=== PATIENT | female | born 1995 | race Caucasian/White ===

== ENCOUNTER 2017-03-06 12:30 | Emergency (ER) | payer BC, MEDICAID ==
[2017-03-06 13:27] VITALS: BP 142/76
[2017-03-06 13:27] LABS: CHLORIDE,CL 105 mEq/L (98-106); SODIUM,NA 138 mEq/L (136-145)
[2017-03-06] MEDS ORDERED: Lactated Ringers 1,000 ML IV ONE (13:28)
[2017-03-06] MEDS ORDERED: cefTRIAXone 1 GM Vial IVPUSH SCH (13:30)
--- NOTE | 2017-03-06 15:05 | EDM.PDOC ---
ED HPI GENERAL MEDICAL PROBLEM - General Chief Complaint: General Stated Complaint: LETHARGIC/PASSED OUT Time Seen by Provider: 03/06/17 13:15 Source of Information: Reports: Patient History Limitations: Reports: No Limitations - History of Present Illness INITIAL COMMENTS - FREE TEXT/NARRATIVE: Lidia is a 21 yo female who presents to the ER, accompanied by her mother, with concerns fainting. States she was outside visiting with her friend when she started to get some blurry vision. States the next thing she knew she was lying on the ground with her friend over her talking to her. She admits her friend felt she was out for about 5 seconds. States she did bump the left and front side of her head. Denies any current symptoms. States she has been more fatigued the last few days. Admits she is 23 weeks . Denies any complications or concerns with the baby. Has been eating well and drinking a lot of water. Admits to no illicit drug use. No alcohol use. States she does smoke 3-4 cigarettes a day. 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 Onset: Today Duration: Resolved Prior to Arrival Epigastric Pain Score (Numeric/FACES): 3 - Related Data Allergies Allergy/AdvReac Type Severity Reaction Status Date / Time Penicillins Allergy Hives Verified 03/06/17 12:42 Home Meds: Home Meds [id number]/FA/Omega3/Dha/Fish Oil [ Gummies] 1 each PO DAILY 03/06/17 [ History] Past Medical History - Past Health History Medical/Surgical History: Denies Medical/Surgical History HEENT History: Reports: Impaired Vision Neurological History: Reports: Seizure - Past Surgical History HEENT Surgical History: Reports: Adenoidectomy, Tonsillectomy Social & Family History - Tobacco Use Smoking Status *Q: Current Every Day Smoker Years of Tobacco use: 4 Packs/Tins Daily: 0.2 - Caffeine Use Caffeine Use: Reports: None - Recreational Drug Use Recreational Drug Use: No ED ROS GENERAL - Review of Systems Review Of Systems: See Below Constitutional: Reports: Fatigue. Denies: Fever, Chills, Decreased Appetite HEENT: Reports: No Symptoms Respiratory: Reports: No Symptoms Cardiovascular: Reports: Syncope. Denies: Chest Pain, Lightheadedness Endocrine: Reports: Fatigue GI/Abdominal: Reports: No Symptoms. Denies: Abdominal Pain, Bloody Stool, Constipation, Diarrhea, Nausea, Vomiting : Reports: Frequency. Denies: Discharge, Dysuria, Urgency Musculoskeletal: Reports: No Symptoms Skin: Reports: No Symptoms Neurological: Denies: Dizziness, Headache, Pre-Existing Deficit ED EXAM, GENERAL - Physical Exam Exam: See Below Exam Limited By: No Limitations General Appearance: Alert, WD/WN, No Apparent Distress Eye Exam: Bilateral Eye: EOMI, PERRL Ears: Normal External Exam, Normal Canal, Hearing Grossly Normal, Normal TMs Nose: Normal Inspection, Normal Mucosa, No Blood Throat/Mouth: Normal Inspection, Normal Lips, Normal Teeth, Normal Gums, Normal Oropharynx, Normal Voice, No Airway Compromise Head: Atraumatic, Normocephalic Neck: Normal Inspection, Supple, Non-Tender, Full Range of Motion Respiratory/Chest: No Respiratory Distress, Lungs Clear, Normal Breath Sounds, No Accessory Muscle Use Cardiovascular: Normal Peripheral Pulses, Regular Rate, Rhythm, No Edema, No Murmur GI/Abdominal: Normal Bowel Sounds, Soft, Non-Tender, No Organomegaly, No Distention, No Abnormal Bruit Extremities: Normal Inspection, Normal Capillary Refill Neurological: Alert, Oriented, CN II-XII Intact, Normal Cognition, Normal Gait, No Motor/Sensory Deficits Psychiatric: Normal Affect, Normal Mood Skin Exam: Warm, Dry, Intact, Normal Color, No Rash Course - Vital Signs Last Recorded V/S: Last Vital Signs Temp 99.5 F 03/06/17 12:38 Pulse 86 03/06/17 12:38 Resp 16 03/06/17 12:38 BP 142/76 H 03/06/17 13:27 Pulse Ox 99 03/06/17 12:38 - Orders/Labs/Meds Orders: Active Orders 24 hr Category Date Time Status CULTURE URINE [RM] Stat Lab 03/06/17 12:30 Received cefTRIAXone [Rocephin] Med 03/06/17 13:30 Active 1 gm IVPUSH Q24H Medication Orders Ceftriaxone Sodium (Rocephin) 1 gm IVPUSH Q24H [facility] Last Admin: 03/06/17 13:47 Dose: 1 gm Labs: Laboratory Tests 03/06/17 03/06/17 03/06/17 Range/Units 12:52 13:15 13:15 WBC 10.6 H (5.0-10.0) 10^3/uL RBC 4.08 (4.00-5.50) 10^6/uL Hgb 12.6 (12.0-16.0) g/dL Hct 36.7 L (37.0-47.0) % MCV 90.0 (82.0-94.0) fL MCH 30.9 (27.0-32.0) pg MCHC 34.3 (33.0-38.0) g/dL RDW Coeff of Garrick 13.8 (11.0-15.0) % Plt Count 182 (150-400) 10^3/uL Neut % (Auto) 81.2 (35-85) % Lymph % (Auto) 11.2 (10-55) % [place] % (Auto) 6.9 (0-16) % Eos % (Auto) 0.6 (0-5) % Baso % (Auto) 0.1 (0-3) % Neut # (Auto) 8.60 H (1.80-7.00) 10^3/uL Lymph # (Auto) 1.18 (1.00-4.80) 10^3/uL [place] # (Auto) 0.73 (0.00-0.80) 10^3/uL Eos # (Auto) 0.06 (0.00-0.45) 10^3/uL Baso # (Auto) 0.01 10^3/uL Sodium 138 (136-145) mEq/L Potassium 4.1 (3.5-5.0) mEq/L Chloride 105 (98-106) mEq/L Carbon Dioxide 23 (21-32) mmol/L BUN 8 (7-18) mg/dL Creatinine 0.5 L (0.6-1.0) mg/dL Est Cr Clr Drug Dosing 158.81 mL/min Estimated GFR (MDRD) > 60 (>=60) mL/min Glucose 75 (75-99) mg/dL Calcium 9.3 (8.4-10.1) mg/dL Urine Color Yellow (YELLOW) Urine Appearance Slightly cloudy (CLEAR) Urine pH 7.0 (4.5-8.0) Ur Specific [place] 1.021 H (1.003-1.020) Urine Protein Negative (NEGATIVE) mg/dL Urine Glucose (UA) Negative (NEGATIVE) mg/dL Urine Ketones Negative (NEGATIVE) mg/dL Urine Occult Blood Negative (NEGATIVE) Urine Nitrite Negative (NEGATIVE) Urine Bilirubin Negative (NEGATIVE) Urine Urobilinogen 0.2 (0.2-1.0) EU/dL Ur Leukocyte Esterase Moderate H (NEGATIVE) Urine RBC Not seen (0-5) /HPF Urine WBC 10-20 H (0-5) /HPF Ur Squamous Epith Cells Few H (NOT SEEN) /HPF Amorphous Sediment Few H (NOT SEEN) /HPF Urine Bacteria Moderate H (NOT SEEN) /HPF Urinalysis Comment Meds: Medications Generic Name Dose Route Start Last Admin Trade Name Freq PRN Reason Stop Dose Admin Ceftriaxone Sodium 1 gm 03/06/17 13:30 03/06/17 13:47 Rocephin IVPUSH 1 gm Q24H SHARON Administration Discontinued Medications Generic Name Dose Route Start Last Admin Trade Name Freq PRN Reason Stop Dose Admin Lactated Ringer's 1,000 mls @ 999 mls/hr 03/06/17 13:28 03/06/17 13:45 Ringers, Lactated IV 03/06/17 14:28 999 mls/hr .BOLUS ONE Administration - Re-Assessments/Exams Free Text/Narrative Re-Assessment/Exam: 03/06/17 15:41 Lidia has been doing well while getting IV fluids. Denies any symptoms. States she is feeling a lot better. Will discharge home after finishing Liter of LR. Departure - Departure Time of Disposition: 16:00 Disposition: Home, Self-Care 01 Clinical Impression: UTI, Urinary tract infectious disease - Discharge Information Referrals: Saturnino Bal MD [Primary Care Provider] - Forms: ED Department Discharge Additional Instructions: 1) Ceftin 500mg twice a day for 7 days 2) Push fluids 3) Will culture urine with antibiotic sensitivity report to follow. Wall call with findings. 4) Follow up with Dr. Bal next week for follow up, return to ER if any concerns prior. - Problem List & Annotations (1) UTI, Urinary tract infectious disease SNOMED Code(s): 13010951 Code(s): N39.0 - URINARY TRACT INFECTION, SITE NOT SPECIFIED Status: Acute Current Visit: Yes - Problem List Review Problem List Initiated/Reviewed/Updated: Yes - My Orders Last 24 Hours: My Active Orders 03/06/17 12:30 CULTURE URINE [RM] Stat 03/06/17 13:30 cefTRIAXone [Rocephin] 1 gm IVPUSH Q24H - Assessment/Plan Last 24 Hours: My Active Orders 03/06/17 12:30 CULTURE URINE [RM] Stat 03/06/17 13:30 cefTRIAXone [Rocephin] 1 gm IVPUSH Q24H Plan: Urinalysis confirmed UTI which may be causing her syncopal episode. Will start Ceftin with culture pending. [employer] was sent to same day care for IV fluids and 1 gram of Rocephin. Will presumptively plan discharge after 1 liter of fluids.
== END 2017-03-06 16:28 | disposition home or self-care (01) ==
LOC: CC.ED 12:30
DX: O23.42 Unspecified infection of urinary tract in pregnancy, second trimester (principal); O99.332 Smoking (tobacco) complicating pregnancy, second trimester; F17.210 Nicotine dependence, cigarettes, uncomplicated; Z88.0 Allergy status to penicillin; Z79.899 Other long term (current) drug therapy; Z3A.23 23 weeks gestation of pregnancy; Z90.49 Acquired absence of other specified parts of digestive tract; Z90.89 Acquired absence of other organs; Z98.890 Other specified postprocedural states
CPT/HCPCS: 36415; 80048; 81001; 85025; 87086; 96361; 96374; 99284; J0696; J7120

== ENCOUNTER 2019-05-07 16:19 | Emergency (ER) | payer OTHER, MEDICAID ==
[2019-05-07 16:24] VITALS: BP 110/67; PULSE 76
--- NOTE | 2019-05-07 18:15 | EDM.PDOCBH ---
ED HPI GENERAL MEDICAL PROBLEM - General Chief Complaint: Behavioral/Psych Stated Complaint: "I feel like killing myself" Time Seen by Provider: 05/07/19 16:35 Source of Information: Reports: Patient History Limitations: Reports: No Limitations - History of Present Illness INITIAL COMMENTS - FREE TEXT/NARRATIVE: Lidia is a 23 yo female who presents to the ED stating she doesn't feel well. States today she found herself crying on the floor after looking at a picture of her past boyfriend and friends. She states it was the happiest she had ever felt and doesn't have those feelings anymore. She states she feels she is at her lowest now. She has been dealing with some financial problems and has two children that she feels she hasn't been the best parent. Admits their father's haven't helped her at all. Feels she doesn't have anyone to talk to or to turn to when she is feeling down. States today she felt like it would be best if she wasn't here anymore. States she doesn't want to feel the way she feels anymore. Admits she was started on escitalopram in January and she thought maybe it was helping but isn't sure anymore. She denies any action or plan in regards to her suicidal thoughts. States she doesn't feel she would ever act on it but just doesn't want to feel this way. States it scared her having the thoughts. Onset: Today - Related Data Allergies Allergy/AdvReac Type Severity Reaction Status Date / Time Penicillins Allergy Hives Verified 03/06/17 12:42 Home Meds: Home Meds [id number]/FA/Omega3/Dha/Fish Oil [ Gummies] 1 each PO DAILY 03/06/17 [ History] Past Medical History - Past Health History Medical/Surgical History: Denies Medical/Surgical History HEENT History: Reports: Impaired Vision Neurological History: Reports: Seizure - Past Surgical History HEENT Surgical History: Reports: Adenoidectomy, Tonsillectomy Social & Family History - Tobacco Use Smoking Status *Q: Former Smoker Years of Tobacco use: 6 Used Tobacco, but Quit: No - Caffeine Use Caffeine Use: Reports: None - Recreational Drug Use Recreational Drug Use: No ED ROS GENERAL - Review of Systems Review Of Systems: See Below Constitutional: Reports: No Symptoms HEENT: Reports: No Symptoms Respiratory: Reports: No Symptoms Cardiovascular: Reports: No Symptoms Endocrine: Reports: No Symptoms GI/Abdominal: Reports: No Symptoms : Reports: No Symptoms Musculoskeletal: Reports: No Symptoms Skin: Reports: No Symptoms Psychiatric: Reports: Depression, Suicidal Ideation. Denies: Agitation, Confusion, Hallucinations, Homicidal Ideation ED EXAM, BEHAVIORAL HEALTH - Physical Exam Exam: See Below Exam Limited By: No Limitations General Appearance: Alert, Anxious Neurological: Alert, Normal Cognition, No Motor/Sensory Deficits, Oriented x 3 Psychiatric: Depressed Mood, Tearful. No: Agitated, Disoriented, Non- Communicative, Uncooperative, Homicidal Thoughts, Suicidal Plan, Suicidal Thoughts, Threatening Behavior COURSE, BEHAVIORAL HEALTH COMP - Course Vital Signs: Last Vital Signs Temp 97.7 F 05/07/19 16:21 Pulse 76 05/07/19 16:21 Resp 20 05/07/19 16:21 BP 110/67 05/07/19 16:21 Pulse Ox 98 05/07/19 16:21 Departure - Departure Time of Disposition: 18:17 Disposition: Home, Self-Care 01 Clinical Impression: Anxiety and depression - Discharge Information Instructions: Major Depressive Disorder, Adult, [id number], Living With Anxiety Additional Instructions: 1) Stop the escitalopram. Advise not starting at this time 2) Recommend recheck next week with Karrie to discuss recent stopping of the medication 3) Encourage to continue doing the things we discussed. 4) Recommend 30 minutes a day of things to do for yourself, running, etc... 5) If any further thought would arise of hurting yourself, please call or return immediately. [phone] 6) Recommend routine visits to discuss how you are doing/feeling. - Problem List & Annotations (1) Anxiety and depression SNOMED Code(s): 689271167 Code(s): F41.9 - ANXIETY DISORDER, UNSPECIFIED; F32.9 - MAJOR DEPRESSIVE DISORDER, SINGLE EPISODE, UNSPECIFIED Status: Acute - Assessment/Plan Plan: Lidia has been doing well in the ED. We spent over 45 minutes in face to face consultation discussing her current situation and what had lead to those feelings. She was able to talk about why she had felt that way. She admits she doesn't have any further thoughts and never did have a plan. She is advised to stop the escitalopram as we discussed the black box warning and common side effects. Encourage refraining from any prescriptions at this time or alcohol. We will discharge at this time with patient admitting she is feeling a lot better. Has no further thoughts and most importantly no plan. We discussed we are always here and if she needs anything it is okay to ask.
== END 2019-05-07 18:30 | disposition home or self-care (01) ==
LOC: CC.ED 16:19
DX: F41.9 Anxiety disorder, unspecified (principal); F32.9 Major depressive disorder, single episode, unspecified; Z98.890 Other specified postprocedural states; Z87.891 Personal history of nicotine dependence; Z88.0 Allergy status to penicillin
CPT/HCPCS: 99284

== ENCOUNTER 2020-04-27 22:12 | Emergency (ER) | payer BC ==
[~2020-04-27 22:12] MED LIST: Ondansetron 4 MG/2 ML SDV ONE
[2020-04-27] MEDS ORDERED: Ondansetron 4 MG Tab.DIS PO ONE (22:13)
[2020-04-27] MEDS ORDERED: Ondansetron 4 MG/2 ML SDV IVPUSH STA (22:23)
[2020-04-27] MEDS ORDERED: Morphine 4 MG/ML VIAL IVPUSH STA (22:23)
[2020-04-27] MEDS ORDERED: Sodium Chloride 0.9% 1,000 ML IV SCH (22:30)
[2020-04-27 22:55] LABS: CHLORIDE,CL 103 mEq/L (98-106); SODIUM,NA 139 mEq/L (136-145)
--- NOTE | 2020-04-27 22:57 | EDM.PDOC ---
ED HPI GENERAL MEDICAL PROBLEM - General Chief Complaint: Abdominal Pain Stated Complaint: abd pain Time Seen by Provider: 04/27/20 22:40 Source of Information: Reports: Patient History Limitations: Reports: No Limitations - History of Present Illness INITIAL COMMENTS - FREE TEXT/NARRATIVE: Lidia is a 24 yo female who presents to the ED via private vehicle with concerns of upper abdominal pain. States it started Sunday evening with a generalized ill feeling. She admits she thought she was getting the stomach flu. States she ended up throwing up Sunday night. States yesterday she continued to not feel well and had a decreased appetite. Admits anytime she tried eating or drinking anything she would throw up. States she did have a bowel movement this morning. States the last few weeks she has had some difficulty with bowel movements d/t constipation. States today the pain worsened and she spent the day laying in her bed. States she still has her gallbladder and appendix. 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 Last alcoholic drink was Sunday night. Admits to last meal Sunday. Only thing she has been drinking is water but again having difficulty keeping it down. Duration: Getting Worse Location: Reports: Abdomen. Denies: Radiates to Quality: Reports: Sharp, Stabbing Upper Abdomen Pain Score (Numeric/FACES): 8 - Related Data Allergies Allergy/AdvReac Type Severity Reaction Status Date / Time Penicillins Allergy Hives Verified 03/06/17 12:42 Home Meds: Home Meds Escitalopram [Lexapro] 10 mg PO DAILY 05/07/19 [History] Estradiol Cypionate [Depo-Estradiol] 1 injection IM Q90D 04/27/20 [History] Past Medical History - Past Health History Medical/Surgical History: Denies Medical/Surgical History HEENT History: Reports: Impaired Vision [employer] History: Reports: Neurological History: Reports: Seizure - Past Surgical History HEENT Surgical History: Reports: Adenoidectomy, Tonsillectomy Social & Family History - Tobacco Use Smoking Status *Q: Current Every Day Smoker Years of Tobacco use: 7 Packs/Tins Daily: 0.2 - Caffeine Use Caffeine Use: Reports: Soda - Alcohol Use Days Per Week of Alcohol Use: 4 Number of Drinks Per Day: 2 Total Drinks Per Week: 8 - Recreational Drug Use Recreational Drug Use: No ED ROS GENERAL - Review of Systems Review Of Systems: See Below Constitutional: Reports: Fever, Chills, Malaise, Decreased Appetite HEENT: Reports: No Symptoms Respiratory: Denies: Shortness of Breath, Wheezing, Cough Cardiovascular: Denies: Chest Pain, Palpitations GI/Abdominal: Reports: Abdominal Pain, Constipation (last few weeks. ), Diarrhea (started yesterday - 1 episode and this morning), Decreased Appetite, Nausea, Vomiting. Denies: Bloody Stool, Distension, Flatus, Hematochezia, Melena : Reports: Irregular Menses (last period end of February to early March then switched to Depo Provera shot). Denies: Discharge, Flank Pain, Hematuria Musculoskeletal: Reports: No Symptoms Skin: Reports: No Symptoms Neurological: Reports: No Symptoms Psychiatric: Reports: No Symptoms ED EXAM, GI/ABD - Physical Exam Exam: See Below Exam Limited By: No Limitations General Appearance: Alert, No Apparent Distress Eyes: Bilateral: Normal Appearance Ears: Normal External Exam, Hearing Grossly Normal Nose: Normal Inspection, Normal Mucosa, No Blood Throat/Mouth: Normal Inspection, Normal Lips, Normal Teeth, Normal Gums, Normal Oropharynx, Normal Voice, No Airway Compromise Head: Atraumatic, Normocephalic Neck: Normal Inspection, Supple Respiratory/Chest: No Respiratory Distress, Lungs Clear, Normal Breath Sounds, No Accessory Muscle Use Cardiovascular: Normal Peripheral Pulses, Regular Rate, Rhythm, No Edema, No Murmur GI/Abdominal Exam: Normal Bowel Sounds, Soft, No Mass, Guarding, Tender (RUQ, epigastric and LUQ ). No: Hepatomegaly, Splenomegaly Back Exam: No: CVA Tenderness (L), CVA Tenderness (R) Extremities: Normal Inspection, No Pedal Edema, Normal Capillary Refill Neurological: Alert, Oriented, Normal Cognition, No Motor/Sensory Deficits Psychiatric: Normal Affect, Normal Mood Course - Vital Signs Last Recorded V/S: Last Vital Signs Temp 97 F 04/27/20 22:59 Pulse 76 04/27/20 22:59 Resp 16 04/27/20 22:59 BP 143/69 H 04/27/20 22:59 Pulse Ox 99 04/27/20 22:59 - Orders/Labs/Meds Orders: Active Orders 24 hr Category Date Time Status Abdomen Ltd [US] Stat Exams 04/27/20 23:03 Ordered OB Ltd 1 or More Fetus [US] Stat Exams 04/27/20 23:11 Ordered Sodium Chloride 0.9% [Normal Saline] 1,000 ml Med 04/27/20 22:30 Active IV ASDIRECTED Medication Orders Sodium Chloride (Normal Saline) 1,000 mls @ 999 mls/hr IV ASDIRECTED SHARON Last Admin: 04/27/20 22:25 Dose: 999 mls/hr Documented by: TORIE Labs: Laboratory Tests 04/27/20 04/27/20 04/27/20 Range/Units 22:23 22:23 22:36 WBC 15.7 H (5.0-10.0) 10^3/uL RBC 5.04 (4.00-5.50) 10^6/uL Hgb 15.9 (12.0-16.0) g/dL Hct 45.1 (37.0-47.0) % MCV 89.5 (82.0-94.0) fL MCH 31.5 (27.0-32.0) pg MCHC 35.3 (33.0-38.0) g/dL RDW Coeff of [place]rick 12.9 (11.0-15.0) % Plt Count 239 (150-400) 10^3/uL Neut % (Auto) 81.5 (35-85) % Lymph % (Auto) 12.0 (10-55) % [place] % (Auto) 6.1 (0-16) % Eos % (Auto) 0.3 (0-5) % Baso % (Auto) 0.1 (0-3) % Neut # (Auto) 12.78 H (1.80-7.00) 10^3/uL Lymph # (Auto) 1.88 (1.00-4.80) 10^3/uL [place] # (Auto) 0.95 H (0.00-0.80) 10^3/uL Eos # (Auto) 0.04 (0.00-0.45) 10^3/uL Baso # (Auto) 0.02 10^3/uL Sodium (136-145) mEq/L Potassium (3.5-5.0) mEq/L Chloride (98-106) mEq/L Carbon Dioxide (21-32) mmol/L BUN (7-18) mg/dL Creatinine (0.6-1.0) mg/dL Est Cr Clr Drug Dosing mL/min Estimated GFR (MDRD) (>=60) mL/min Glucose (75-99) mg/dL Lactic Acid (0.4-2.0) mmol/L Calcium (8.4-10.1) mg/dL Total Bilirubin (0.0-1.0) mg/dL AST (15-37) U/L ALT (12-78) U/L Alkaline Phosphatase (46-116) U/L C-Reactive Protein (0.2-0.8) mg/dL Total Protein (6.4-8.2) g/dL Albumin (3.4-5.0) g/dL Amylase (25-115) U/L Lipase (73-393) U/L Urine Color Yellow (YELLOW) Urine Appearance Clear (CLEAR) Urine pH 6.0 (4.5-8.0) Ur Specific [place] >= 1.030 H (1.003-1.020) Urine Protein 30 H (NEGATIVE) mg/dL Urine Glucose (UA) Negative (NEGATIVE) mg/dL Urine Ketones >=160 H (NEGATIVE) mg/dL Urine Occult Blood Trace-intact H (NEGATIVE) Urine Nitrite Negative (NEGATIVE) Urine Bilirubin Small H (NEGATIVE) Urine Urobilinogen 1.0 (0.2-1.0) EU/dL Ur Leukocyte Esterase Small H (NEGATIVE) Urine RBC 0-5 (0-5) /HPF Urine WBC 5-10 H (0-5) /HPF Ur Squamous Epith Cells Many H (NOT SEEN) /HPF Urine Bacteria Few H (NOT SEEN) /HPF Urine HCG, Qual Positive 04/27/20 04/27/20 Range/Units 22:36 22:36 WBC (5.0-10.0) 10^3/uL RBC (4.00-5.50) 10^6/uL Hgb (12.0-16.0) g/dL Hct (37.0-47.0) % MCV (82.0-94.0) fL MCH (27.0-32.0) pg MCHC (33.0-38.0) g/dL RDW Coeff of [place] (11.0-15.0) % Plt Count (150-400) 10^3/uL Neut % (Auto) (35-85) % Lymph % (Auto) (10-55) % [place] % (Auto) (0-16) % Eos % (Auto) (0-5) % Baso % (Auto) (0-3) % Neut # (Auto) (1.80-7.00) 10^3/uL Lymph # (Auto) (1.00-4.80) 10^3/uL [place] # (Auto) (0.00-0.80) 10^3/uL Eos # (Auto) (0.00-0.45) 10^3/uL Baso # (Auto) 10^3/uL Sodium 139 (136-145) mEq/L Potassium 3.8 (3.5-5.0) mEq/L Chloride 103 (98-106) mEq/L Carbon Dioxide 17 L (21-32) mmol/L BUN 11 (7-18) mg/dL Creatinine 0.9 D (0.6-1.0) mg/dL Est Cr Clr Drug Dosing 85.98 mL/min Estimated GFR (MDRD) > 60 (>=60) mL/min Glucose 88 (75-99) mg/dL Lactic Acid 1.4 (0.4-2.0) mmol/L Calcium 9.4 (8.4-10.1) mg/dL Total Bilirubin 0.9 (0.0-1.0) mg/dL AST 13 L (15-37) U/L ALT 32 (12-78) U/L Alkaline Phosphatase 96 (46-116) U/L C-Reactive Protein 1.5 H (0.2-0.8) mg/dL Total Protein 7.9 (6.4-8.2) g/dL Albumin 4.1 (3.4-5.0) g/dL Amylase 37 (25-115) U/L Lipase 81 (73-393) U/L Urine Color (YELLOW) Urine Appearance (CLEAR) Urine pH (4.5-8.0) Ur Specific [place] (1.003-1.020) Urine Protein (NEGATIVE) mg/dL Urine Glucose (UA) (NEGATIVE) mg/dL Urine Ketones (NEGATIVE) mg/dL Urine Occult Blood (NEGATIVE) Urine Nitrite (NEGATIVE) Urine Bilirubin (NEGATIVE) Urine Urobilinogen (0.2-1.0) EU/dL Ur Leukocyte Esterase (NEGATIVE) Urine RBC (0-5) /HPF Urine WBC (0-5) /HPF Ur Squamous Epith Cells (NOT SEEN) /HPF Urine Bacteria (NOT SEEN) /HPF Urine HCG, Qual Meds: Medications Generic Name Dose Route Start Last Admin Trade Name Jason PRN Reason Stop Dose Admin Sodium Chloride 1,000 mls @ 999 mls/hr 04/27/20 22:30 04/27/20 22:25 Normal Saline IV 999 mls/hr ASDIRECTED SHARON Administration Discontinued Medications Generic Name Dose Route Start Last Admin Trade Name Jason PRN Reason Stop Dose Admin Morphine Sulfate 4 mg 04/27/20 22:23 04/27/20 22:30 Morphine IVPUSH 04/27/20 22:24 4 mg STAT STA Administration Ondansetron HCl 4 mg 04/27/20 22:23 04/27/20 22:26 Zofran IVPUSH 04/27/20 22:24 4 mg STAT STA Administration Ondansetron HCl Confirm 04/27/20 22:10 04/27/20 22:38 Zofran Administered 04/27/20 22:11 Not Given Dose 4 mg .ROUTE .STK-MED ONE - Re-Assessments/Exams Free Text/Narrative Re-Assessment/Exam: [place] [address]. Urine was positive. Ultrasound of RUQ and OB was completed. No gallstones or inflammatory changes of gallbladder wall. Liver and pancreas unremarkable. Ultrasound did show a live intrauterine at 7 weeks gestation. HR of 140's. Departure - Departure Time of Disposition: 00:07 Disposition: Home, Self-Care 01 Clinical Impression: Intrauterine Abdominal pain Qualifiers: Abdominal location: epigastric Qualified Code(s): R10.13 - Epigastric pain - Discharge Information Instructions: Abdominal Pain During , [id number], Nausea and Vomiting, Adult, [id number]-[id number], First Trimester of , Mrex-nr-Dmme, Warning Signs During Referrals: Saturnino Bal MD [Primary Care Provider] - Forms: ED Department Discharge Additional Instructions: 1) Zofran ODT 4mg - 1 tab every 4 hours (let dissolve on tongue) for nausea 2) Encourage increasing fluid intake 3) Discussed tonight and recommend see primary provider tomorrow. I will consult with Dr. Bal, primary provider, in the morning 4) If any fevers, worsening of pain, or any concerns at all as discussed, return to ED 5) Encourage smoking cessation, limiting caffeine intake, refrain from spicy foods and chocolate. May also help with epigastric discomfort Sepsis Event Note (ED) - Evaluation Sepsis Screening Result: No Definite Risk - Focused Exam Vital Signs: Vital Signs Temp Pulse Resp BP Pulse Ox 04/27/20 22:59 97 F 76 16 143/69 H 99 04/27/20 22:12 97.5 F 107 H 20 152/89 H 98 - Problem List & Annotations (1) Abdominal pain SNOMED Code(s): 30135317 Code(s): R10.9 - UNSPECIFIED ABDOMINAL PAIN Status: Acute Current Visit: Yes Qualifiers: Abdominal location: epigastric Qualified Code(s): R10.13 - Epigastric pain (2) Intrauterine SNOMED Code(s): 25051794 Code(s): Z34.90 - ENCNTR FOR SUPRVSN OF NORMAL , UNSP, UNSP TRIMESTER Status: Acute Current Visit: Yes - My Orders Last 24 Hours: My Active Orders 04/27/20 22:30 Sodium Chloride 0.9% [Normal Saline] 1,000 ml IV ASDIRECTED 04/27/20 23:03 Abdomen Ltd [US] Stat 04/27/20 23:11 OB Ltd 1 or More Fetus [US] Stat - Assessment/Plan Last 24 Hours: My Active Orders 04/27/20 22:30 Sodium Chloride 0.9% [Normal Saline] 1,000 ml IV ASDIRECTED 04/27/20 23:03 Abdomen Ltd [US] Stat 04/27/20 23:11 OB Ltd 1 or More Fetus [US] Stat Plan: See course and additional instructions.
[2020-04-27 22:59] VITALS: BP 143/69; PULSE 76
[2020-04-28] MEDS ORDERED: Take Home: Ondansetron 4 MG Tab.DIS, 2 Tab Pack PO ONE (00:08)
== END 2020-04-28 00:20 | disposition home or self-care (01) ==
LOC: SUPCPDRO 22:12 → CC.ED 22:12
DX: O99.89 Other specified diseases and conditions complicating pregnancy, childbirth and the puerperium (principal); R10.13 Epigastric pain; R10.11 Right upper quadrant pain; R10.12 Left upper quadrant pain; R19.7 Diarrhea, unspecified; O21.9 Vomiting of pregnancy, unspecified; O99.331 Smoking (tobacco) complicating pregnancy, first trimester; F17.210 Nicotine dependence, cigarettes, uncomplicated; Z88.0 Allergy status to penicillin; Z79.899 Other long term (current) drug therapy; Z3A.01 Less than 8 weeks gestation of pregnancy
CPT/HCPCS: 36415; 76705; 76815; 80053; 81001; 81025; 82150; 83605; 83690; 85025; 86140; 96361; 96374; 96375; 99284-25; A9270-GY; J2270; J2405; J7030

== ENCOUNTER 2022-04-29 20:50 | Emergency (ER) | payer BC ==
[2022-04-29] MEDS ORDERED: Diphtheria,Pertussis(Acell),Tetanus Vaccine 0.5 ML Syringe IM ONE (21:29)
[2022-04-29] MEDS ORDERED: HYDROmorphone 0.5 MG/0.5 ML Syringe IVPUSH ONE ×2 (21:30→21:57)
[2022-04-29] MEDS ORDERED: Ondansetron 4 MG/2 ML SDV IVPUSH PRN (21:58)
[2022-04-29 22:10] LABS: CHLORIDE,CL 102 mEq/L (98-106); ESTIMATED GFR 104 mL/min (>=60); SODIUM,NA 136 mEq/L (136-145)
[2022-04-29] MEDS ORDERED: fentaNYL 50 MCG/ML SDV ONE (22:30)
[2022-04-30 01:02] VITALS: PULSE 90
[2022-04-30] MEDS ORDERED: HYDROmorphone 1 MG/ML Syringe ONE (01:29)
[2022-04-30 02:00] VITALS: BP 156/109
== END 2022-04-29 22:43 | disposition critical access hospital (66) ==
LOC: CC.ED 20:50
DX: S71.122A Laceration with foreign body, left thigh, initial encounter (principal); Z23 Encounter for immunization; Z79.899 Other long term (current) drug therapy; Z88.0 Allergy status to penicillin; W18.40XA Slipping, tripping and stumbling without falling, unspecified, initial encounter
CPT/HCPCS: 36415; 80053; 80307; 85025; 90471; 90715; 96374; 96375; 99284; 99285; J1170; J2405

== ENCOUNTER 2024-09-26 11:03 | Day surgery (SDC) | payer MEDICAID ==
[2024-09-26] MEDS: Lactated Ringers 1,000 ML IV SCH (11:55)
[2024-09-26] MEDS ORDERED: Lidocaine 2% 20 ML MDV ONE (12:10)
[2024-09-26] MEDS ORDERED: fentaNYL 50 MCG/ML SDV ONE ×2 (12:10)
[2024-09-26] MEDS ORDERED: Ondansetron 4 MG/2 ML SDV ONE (12:10)
[2024-09-26] MEDS ORDERED: Midazolam 1 MG/ML 2 ML SDV ONE (12:10)
[2024-09-26] MEDS ORDERED: Propofol 200 MG/20 ML SDV ONE ×2 (12:10)
[2024-09-26] MEDS ORDERED: Ketamine 200 MG/20 ML MDV ONE (12:10)
[2024-09-26 13:57] VITALS: BP 129/69; PULSE 58
== END 2024-09-26 13:35 | disposition home or self-care (01) ==
LOC: CC.SDS 11:03
PROVIDERS: ATTEND Family Medicine
DX: K29.50 Unspecified chronic gastritis without bleeding (principal); B96.81 Helicobacter pylori [H. pylori] as the cause of diseases classified elsewhere; K57.30 Diverticulosis of large intestine without perforation or abscess without bleeding; F41.9 Anxiety disorder, unspecified; F32.A Depression, unspecified; R63.4 Abnormal weight loss; Z68.29 Body mass index [BMI] 29.0-29.9, adult; G54.6 Phantom limb syndrome with pain; Z79.899 Other long term (current) drug therapy
CPT/HCPCS: 36415; 84703; 87081; J2250; J2405; J2704; J3010; J3490; J7120

== ENCOUNTER 2024-10-09 12:00 | Emergency (ER) | payer MEDICAID ==
[2024-10-09 12:18] VITALS: BP 177/96; PULSE 89
[2024-10-09 12:31] LABS: BASOPHILS ABSOLUTE AUTO 0.04 10^3/uL (0.00-0.50); BASOPHILS PERCENT AUTO 0.4 % (0-1); EOSINOPHILS ABSOLUTE AUTO 0.06 10^3/uL (0.00-1.50); EOSINOPHILS PERCENT AUTO 0.5 % (0-6); HEMATOCRIT 45.8 % (37.0-47.0); HEMOGLOBIN 15.2 g/dL (12.0-16.0); IMMATURE GRAN ABSOLUTE AUTO 0.02 10^3/uL (0.00-0.49); IMMATURE GRAN PERCENT AUTO 0.2 % (0.0-4.9); LYMPHOCYTES ABSOLUTE AUTO 1.65 10^3/uL (0.60-5.00); LYMPHOCYTES PERCENT AUTO 14.7 % (24-44); MEAN CORPUSCULAR HEMOGLOBIN 30.8 pg (27.0-32.0); MEAN CORPUSCULAR HGB CONC 33.2 g/dL (32.0-36.0); MEAN CORPUSCULAR VOLUME 92.9 fL (83.0-97.0); MONOCYTES ABSOLUTE AUTO 0.72 10^3/uL (0.00-1.50); MONOCYTES PERCENT AUTO 6.4 % (0-10); NEUTROPHILS ABSOLUTE AUTO 8.73 x10^3/uL (1.80-8.00); NEUTROPHILS PERCENT AUTO 77.8 % (41-71); PLATELET COUNT,PLT 268 10^3/uL (150-400); RED BLOOD CELL COUNT 4.93 x10^6/uL (4.00-5.50); WHITE BLOOD CELL COUNT,WBC 11.2 10^3/uL (4.0-11.0)
[2024-10-09 12:41] LABS: BENZODIAZEPINE,URINE NEGATIVE (NEGATIVE); MDMA (ECSTASY), URINE NEGATIVE (NEGATIVE); METHADONE,URINE NEGATIVE (NEGATIVE); METHAMPHETAMINES,URINE NEGATIVE (NEGATIVE); OPIATES,URINE NEGATIVE (NEGATIVE)
[2024-10-09 12:42] LABS: AMPHETAMINES,URINE NEGATIVE (NEGATIVE); BARBITURATES,URINE NEGATIVE (NEGATIVE); OXYCODONE,URINE NEGATIVE (NEGATIVE); PHENCYCLIDINE,URINE NEGATIVE (NEGATIVE); TCA,URINE NEGATIVE (NEGATIVE)
[2024-10-09 12:49] LABS: ALANINE AMINOTRANSFERASE,ALT 32 U/L (12-78); ALBUMIN 4.1 g/dL (3.4-5.0); ALKALINE PHOSPHATASE 86 U/L (46-116); ASPARTATE AMNIOTRANSFERASE,AST 22 U/L (15-37); BILIRUBIN TOTAL 0.6 mg/dL (0.0-1.0); BLOOD UREA NITROGEN,BUN 9 mg/dL (7-18); CALCIUM 9.4 mg/dL (8.4-10.1); CARBON DIOXIDE,CO2 29 mmol/L (21-32); CHLORIDE,CL 103 mEq/L (98-106); EST CRCL DRUG DOSING (CG) 71.03 mL/min; GLUCOSE RANDOM 98 mg/dL (75-99); MAGNESIUM 1.8 mg/dL (1.8-2.4); POTASSIUM,K 3.9 mEq/L (3.5-5.0); PROTEIN TOTAL,TP 7.4 g/dL (6.4-8.2); SODIUM,NA 141 mEq/L (136-145)
[2024-10-09 12:51] LABS: C-REACTIVE PROTEIN < 0.50 mg/dL (<=0.50); ESTIMATED GFR 78 mL/min (>=60)
[2024-10-09 12:52] LABS: ACETAMINOPHEN < 2 ug/mL (10-30)
== END 2024-10-09 13:14 | disposition home or self-care (01) ==
LOC: CC.ED 12:07
DX: R45.851 Suicidal ideations (principal); F17.210 Nicotine dependence, cigarettes, uncomplicated; Z79.899 Other long term (current) drug therapy; Z79.2 Long term (current) use of antibiotics; Z88.0 Allergy status to penicillin
CPT/HCPCS: 36415; 80053; 80143; 80179; 80305-QW; 81025; 83735; 85025; 86140; 87428-QW; 99284